=== PATIENT | male | born 1990 | race Caucasian/White ===

== ENCOUNTER → 2023-09-03 | Outpatient (CLI) | payer BC, MEDICAID, SELFPAY ==
[2023-09-03 10:08] LABS: Absolute Lymphocyte Count 3.04 X10^3/uL (0.83-4.51); Basophil# 0.07 X10^3/uL; Basophil% 0.7 % (0-1); Eosinophil# 0.24 X10^3/uL; Eosinophils% 2.4 % (0-5); Hematocrit 43.1 % (40-54); Hemoglobin 13.3 g/dL (13.0-16.5); Lymphocyte # 3.04 X10^3/ul (0.83-4.51); Lymphocyte % 30.7 % (19-41); Mean Corp Hgb Conc 30.9 g/dL (32-36); Mean Corpuscular Hgb 26.1 pg (27.0-32.0); Mean Corpuscular Volume 84.5 fL (80-94); Mean Platelet Vol. 10.6 fl (6.2-12.0); Monocyte# 0.54 X10^3/uL; Monocyte% 5.5 % (0-10); NRBC Flagged by Analyzer 0 % (0-5); Neutrophil # 5.97 X10^3/uL (2.7-7.7); Neutrophil % 60.3 % (47-70); Platelet Count 360 K/mm3 (150-450); RBC Distribution Width CV 14.9 % (11.6-14.6); RBC Distribution Width SD 45.2 fl (35.1-43.9); White Blood Count 9.9 K/mm3 (4.4-11.0)
[2023-09-03 10:48] LABS: ALB/GLOB Ratio 0.7 RATIO (0.9-2.4); AST(SGOT) 18 U/L (15-37); Alanine Aminotransfer ALT/SGPT 38 U/L (16-61); Albumin, Serum 3.2 g/dL (3.2-5.0); Alkaline Phosphatase 78 U/L (45-117); Anion Gap 4 (5-15); BUN 18 mg/dL (7-18); BUN/Creat Ratio 25.1 RATIO (10-20); Calcium,Total 8.8 mg/dL (8.5-10.1); Chloride 105 mmol/L (98-107); Cholesterol 165 mg/dL (200); Creatinine, Serum 0.72 mg/dL (0.70-1.30); EST Glomerular Filtration Rate 134 mL/min (>60); Est Glom Filt Rate - Afr Amer 162 mL/min (>60); Globulin 4.5 g/dL (2.2-4.2); Glucose 116 mg/dL (74-106); High Density Lipoprotein 32 mg/dL; Potassium 3.8 mmol/L (3.5-5.1); Protein, Total 7.7 g/dL (6.4-8.2); Sodium Level 138 mmol/L (136-145); Triglycerides 133 mg/dL; Very Low Density Lipoprotein 27 mg/dL (5-40)
== END | disposition home or self-care (01) ==
LOC: MFPLAB 09:02
PROVIDERS: PCP Family Medicine; Visit Provider Family Medicine
DX: E11.9 Type 2 diabetes mellitus without complications (principal)
CPT/HCPCS: 36415; 80053; 80061; 84443; 85025

== ENCOUNTER → 2023-11-05 | Outpatient (CLI) | payer BC, MEDICAID, SELFPAY ==
--- OUTSIDE RECORDS SUMMARY | 2023-11-05 09:48 | XMS RPT_ITS | CCD ---
Author Name Unknown Address [address] [place] [address] Organization [facility] Care Team Providers Care Vice President Network Name Role Phone Unavailable Unavailable Unavailable EDMUNDO SEQUEIRA Unavailable Unava ilable GRIMALDO, MICKEY REESE Unavailable Unavailable GRIMALDO, MICKEY REESE Unavailable Unavailable GRIMALDO, MICKEY REESE Unavailable Unavailable EDMUNDO SEQUEIRA Unavailable Unava ilEdmundo Morris Unavailable GRIMALDO, MICKEY REESE Admitting Unavailable GRIMALDO, MICKEY REESE Referring Unavailable EDMUNDO SEQUEIRA Primary Care EDMUNDO Liu MD Primary Care EDMUNDO Granados MD Attending Rima SEQUEIRA MD, EDMUNDO Admitting Rima BRYANT MD, LAWRENCE Consulting Unavailable EDMUNDO SEQUEIRA MD Consulting EDMUNDO Granados MD Admitting Rima SEQUEIRA MD, EDMUNDO Primary Care UnavailEDMUNDO Peralta MD Consulting EDMUNDO Granados MD Attending Rima ramos PHYSICIAN, NOT RECORDED Primary Care Unavailsaumya CASTELLANOS MD, AMARILIS Taveras Attending Unavailable Medications Current Medications Medication Drug Class(es) Dates Sig (Normalized) Sig (Original) aspirin 81 mg delayed release oral tablet (1 source) Platelet Aggregation Inhibitor, Nonsteroidal Anti-inflammatory Drug take 2 tablets by mouth once aspirin 81 MG EC tablet Take 162 mg by mouth nightly . Active atenolol 25 mg oral tablet (1 source) beta-Adrenergic Koby take 1 tablet by mouth once daily atenolol (TENORMIN) 25 MG tablet Take 25 mg by mouth daily. Active hydrOXYzine hydrochloride 25 mg oral tablet (1 source) Antihistamine take 2 tablets by mouth once hydrOXYzine (ATARAX) 25 MG tablet Take 50 mg by mouth nightly . Active hyoscyamine sulfate 0.125 mg sublingual tablet (1 source) take 0.125 tablet under the tongue every four hours hyoscyamine (LEVSIN/SL) 0.[address] 0.125 mg under the tongue every 4 (four) hours as needed for cramping. Active naproxen sodium 220 mg oral tablet (1 source) Nonsteroidal Anti-inflammatory Drug take 1 tablet by mouth twice daily as needed naproxen sodium (ALEVE) 220 MG tablet Take 220 mg by mouth 2 (two) times a day as needed. Active omeprazole 20 mg delayed release oral capsule (2 sources) Proton Pump Inhibitor take 1 capsule by mouth once daily omeprazole (PRILOSEC) 20 MG capsule Take 20 mg by mouth daily. Active Completed/Discontinued Medications Medication Drug Class(es) Dates Sig (Normalized) Sig (Original) Diphenhydramine 50 Mg/Ml Injection Solution (1 source) Histamine-1 Receptor Antagonist Start: 07-27-2017 End: 07-27-2017 take 25 mg intravenous route once, then take 25 mg intravenous route diphenhydrAMINE (BENADRYL) injection 25 mg 25 mg, Intravenous, Once, 07/27/17 at 1425, For 1 dose, For IV administration, give at a rate less than or equal to 25 mg/min Given 07/27/2017 15:09 EDT 25 mg 1 ml ketorolac tromethamine 30 mg/ml injection (1 source) Nonsteroidal Anti-inflammatory Drug, Cyclooxygenase Inhibitor Start: 07-27-2017 End: 07-27-2017 ketorolac (TORADOL) injection 30 mg 30 mg, Intravenous, Once, 07/27/17 at 1425, For 1 dose Given 07/27/2017 15:09 EDT 30 mg 2 ml metoclopramide 5 mg/ml injection (1 source) Dopamine-2 Receptor Antagonist Start: 07-27-2017 End: 07-27-2017 metoclopramide (REGLAN) injection 10 mg 10 mg, Intravenous, Once, 07/27/17 at 1425, For 1 dose Given 07/27/2017 15:09 EDT 10 mg 1000 ml sodium chloride 9 mg/ml injection (1 source) Start: 07-27-2017 End: 07-27-2017 sodium chloride 0.9% (NS) bolus 1,000 mL 1,000 mL, Intravenous, Once, 07/27/17 at 1425, For 1 dose New Bag 07/27/2017 15:09 EDT 1,000 mL Problems Active Problems Problem Classification Problem Date Documented Date Episodic/Chronic Diabetes mellitus without complication (3 sources) Type 2 diabetes mellitus without complications; Translations: [TYPE 2 DM WITHOUT COMPLICATIONS] Onset: 10-15-2022 Chronic Osteoarthritis (1 source) Unilateral primary osteoarthritis, left knee; Translations: [UNI PRIM OSTEOARTHRITIS LT KNEE] Onset: 10-16-2022 Chronic Past or Other Problems Problem Classification Problem Date Documented Da te Episodic/Chronic Headache; including migraine (3 sources) Headache; Translations: [Headache disorder] Onset: 07-27-2017 Episodic Malaise and fatigue (3 sources) Other fatigue; Translations: [Fatigue] Onset: 07-27-2017 Episodic Nonspecific chest pain (1 source) Chest pain; Translations: [Chest pain] Onset: 10-16-2016 10-16-2016 Episodic Other screening for suspected conditions (not mental disorders or infectious disease) (1 source) Other specified abnormal findings of blood chemistry; Translations: [OTH SPEC ABNORMAL FINDINGS BLD CHEM] Onset: 10-16-2022 Episodic Residual codes; unclassified (3 sources) Sleep deprivation; Translations: [Sleep deprivation] Onset: 07-27-2017 Episodic Results Test Name Value Interpretation Reference Range Facil ity Vital Signs Date Time Vital Sign Value Performing Clinician Facility 07-27-2017 17:10-0400 BP Diastolic 99 mm[Hg] Mickey Grimaldo [facility] Work Phone: 07-27-2017 17:10-0400 BP Systolic 126 mm[Hg] Mickey Grimaldo [facility] Work Phone: 07-27-2017 17:10-0400 Pulse (Heart Rate) 77 /min Mickey Grimaldo [facility] Work Phone: 07-27-2017 17:10-0400 Pulse Oximetry 100 % Mickey Grimaldo [facility] Work Phone: 07-27-2017 17:10-0400 Respiratory Rate 17 /min Mickey Grimaldo [facility] Work Phone: 07-27-2017 14:08-0400 BMI (Body Mass Index) 56.96 kg/m2 Mickey Grimaldo [facility] Work Phone: 07-27-2017 14:08-0400 Body Temperature 98.1 [degF] Mickey Grimaldo [facility] Work Phone: 07-27-2017 14:08-0400 Height 182.9 cm Mickey Grimaldo [facility] Work Phone: 07-27-2017 14:08-0400 Weight 190.51 kg Mickey Grimaldo [facility] Work Phone: Encounters Encounter Date Encounter Type Care Provider Facility Start: 05-29-2023 End: 05-29-2023 Emergency department patient visit NOT RECORDED PHYSICIAN Facility:B Start: 10-15-2022 End: 10-16-2022 ambulatory EDMUNDO SEQUEIRA MD Facility:[facility] Start: 06-27-2022 End: 06-28-2022 ambulatory EDMUNDO SEQUEIRA MD Facility:[facility] Start: 07-27-2017 End: 07-27-2017 Emergency department patient visit EDMUNDO [facility] Start: 07-27-2017 End: 07-27-2017 Emergency department patient visit Mickey Grimaldo Work Phone: [facility] Emergency Department Plan of Treatment Date Care Activity Detail Author Start: 06-26-2017 Influenza vaccination SEQUENTI AL INFLUENZA VACCINE (#1) [employer] Work Phone: Start: 1990 Tetanus vaccination TETANUS EVERY 10 YR [employer] Work Phone: Payers Date Payer Category Payer Unknown [id number] 2017 Medicaid [id number] 2016 Unknown [id number] 1990 Unknown [id number] 1990 Unknown [id number] 1990 Unknown [id number] 1990 Unknown [id number] 1959 Unknown [id number] Private Health Insurance [id number] Social History Date Type Detail Facility Start: 12-09-2017 Tobacco smoking stat [place] [facility] Unknown if ever smoked [facility] Work Phone: Sex Assigned At Not on file [facility] Work Phone: Start: 10-16-2016 Tobacco smoking stat [place] [facility] Former smoker [facility] Work Phone: Summary Purpose Family History No Family History Records FoundNo Family History Records FoundNo Family History Records FoundNo Family History Records FoundNo Family History Records Found Advance Directives No Advanced Directives Records FoundNo Advanced Directives Records FoundNo Advanced Directives Records FoundNo Advanced Directives Records FoundNo Advanced Directives Records Found Discharge Instructions * Mickey Grimaldo, - 07/27/2017 Thank you for choosing to be seen in our Emergency Department. It has been our pleasure to take care of you and hope you were completely satisfied. 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 You may be receiving a survey about your visit with us. It is scored on a 1-5 scale and anything other than a 5 is considered a failing score. We do our very best to provide service which receives scores of all 5's. It would be appreciated if you could send the survey back reflecting the staff's strong efforts to make sure you are safe and treated like we would treat our loved ones. Thank you again for choosing [facility]. Dr. Grimaldo and your [facility] ER Staff Fatigue: Care Instructions Your Care Instructions Fatigue is a feeling of tiredness, exhaustion, or lack of energy. You may feel fatigue because of too much or not enough activity. It can also come from stress, lack of sleep, boredom, and poor diet.Many medical problems, such as viral infections, can cause fatigue. Emotional problems, especially depression, are often the cause of fatigue. Fatigue is most often a symptom of another problem. Treatment for fatigue depends on the cause. Forexample, if you have fatigue because you have a certain health problem, treating this problem also treats your fatigue. If depression or anxiety is the cause, treatment may help. Follow-up care is a manning part of your treatment and safety. Be sure to make and go to all appointments, and call your doctor if you are having problems. It's also a good idea to know your test resultsand keep a list of the medicines you take. How can you care for yourself at home? Get regular exercise. But don't overdo it. Go back and forth between rest and exercise. Get plenty of rest. Eat a healthy diet. Do not skip meals, especially breakfast. Reduce your use of caffeine, tobacco, and alcohol. Caffeine is most often found in coffee, tea, cola drinks, and chocolate. Limit medicines that can cause fatigue. This includes tranquilizers and cold and allergy medicines. When should you call for help? Watch closely for changes in your health, and be sure to contact your doctor if: You have new symptoms such as fever or a rash. Your fatigue gets worse. You have been feeling down, depressed, or hopeless. Or you may have lost interest in things that you usually enjoy. You are not getting better as expected. Where can you learn more? Log into your personal health record on https://[employer] and enter W864 in the Education box to learn more about Fatigue: Care Instructions. Current as of: March 21, 2016 Content Version: 11.2 6020-5031 [employer]. Care instructions adapted under license by your healthcare professional. If you have questions about a medical condition or this instruction, always ask your healthcare professional. [employer] disclaims any warranty or liability for your use of this information. Headache: Care Instructions Your Care Instructions Headaches have many possible causes. Most headaches aren't a sign of a more serious problem, and they will get better on their own. Home treatment may help you feel better faster. The doctor has checked you carefully, but problems can develop later. If you notice any problems ornew symptoms, get medical treatment right away. Follow-up care is a manning part of your treatment and safety. Be sure to make and go to all appointments, and call your doctor if you are having problems. It's also a good idea to know your test resultsand keep a list of the medicines you take. How can you care for yourself at home? Do not drive if you have taken a prescription pain medicine. Rest in a quiet, dark room until your headache is gone. Close your eyes and try to relax or go to sleep. Don't watch TV or read. Put a cold, moist cloth or cold pack on the painful area for 10 to 20 minutes at a time. Put a thincloth between the cold pack and your skin. Use a warm, moist towel or a heating pad set on low to relax tight shoulder and neck muscles. Have someone gently massage your neck and shoulders. Take pain medicines exactly as directed. If the doctor gave you a prescription medicine for pain, take it as prescribed. If you are not taking a prescription pain medicine, ask your doctor if you can take an iohm-ewa-phpwmem medicine. Be careful not to take pain medicine more often than the instructions allow, because you may get worse or more frequent headaches when the medicine wears off. Do not ignore new symptoms that occur with a headache, such as a fever, weakness or numbness, vision changes, or confusion. These may be signs of a more serious problem. To prevent headaches Keep a headache diary so you can figure out what triggers your headaches. Avoiding triggers may help you prevent headaches. Record when each headache began, how long it lasted, and what the pain was like (throbbing, aching, stabbing, or dull). Write down any other symptoms you had with the headache, such as nausea, flashing lights or dark spots, or sensitivity to bright light or loud noise. Note if the headache occurred near your period. List anything that might have triggered the headache, such as certain foods (chocolate, cheese, wine) or odors, smoke, bright light, stress, or lack of sleep. Find healthy ways to deal with stress. Headaches are most common during or right after stressful times. Take time to relax before and after you do something that has caused a headache in the past. Try to keep your muscles relaxed by keeping good posture. Check your jaw, face, neck, and shoulder muscles for tension, and try relaxing them. When sitting at a desk, change positions often, and stretch for 30 seconds each hour. Get plenty of sleep and exercise. Eat regularly and well. Long periods without food can trigger a headache. Treat yourself to a massage. Some people find that regular massages are very helpful in relieving tension. Limit caffeine by not drinking too much coffee, tea, or soda. But don't quit caffeine suddenly, because that can also give you headaches. Reduce eyestrain from computers by blinking frequently and looking away from the computer screen every so often. Make sure you have proper eyewear and that your monitor is set up properly, about an arm's length away. Seek help if you have depression or anxiety. Your headaches may be linked to these conditions. Treatment can both prevent headaches and help with symptoms of anxiety or depression. When should you call for help? Call 911 anytime you think you may need emergency care. For example, call if: You have signs of a stroke. These may include: Sudden numbness, paralysis, or weakness in your face, arm, or leg, especially on only one side of your body. Sudden vision changes. Sudden trouble speaking. Sudden confusion or trouble understanding simple statements. Sudden problems with walking or balance. A sudden, severe headache that is different from past headaches. Call your doctor now or seek immediate medical care if: You have a new or worse headache. Your headache gets much worse. Where can you learn more? Log into your personal health record on https://[employer] and enter M271 in the Education box to learn more about Headache: Care Instructions. Current as of: August 08, 2016 Content Version: 11.2 2416-2672 [employer]. Care instructions adapted under license by your healthcare professional. If you have questions about a medical condition or this instruction, always ask your healthcare professional. [employer] disclaims any warranty or liability for your use of this information. Please review regarding your visit: Please note that your blood pressure during this ER visit was above 120/80 mmHg. The [place] [employer] (AHA) defines a normal blood pressure as below 120/80 mm Hg. This does not necessarily mean that you carry a diagnosis of a persistent elevation in your blood pressure called hypertension (unless you have already been diagnosed with hypertension), but does need close follow up. Please note that the Joint National Committee (JNC) guidelines recommend that this reading be repeated by your primary doctor or by home readings. Often times blood pressure can be elevated in the ERrelated to pain, etc. Your ER physician is trained in determining whether this blood pressure is causing symptoms during your visit today. At this time, your emergency physician has determined that you are safe for discharge. Please note that it may be inappropriate to treat this blood pressure in the ER if it is not causing symptoms. We strongly recommend follow up with your primary care doctor. A primary doctor will be referred toyou if you do not have one. If your blood pressure is persistently elevated, your doctor will then review options that can be made to manage this condition. If you already have a diagnosis of hypertension, please follow up with your primary care doctor for further management. The AHA does have a website that you can review at your convenience for more information: [email or web address] [email or web address] in this encounter History of Present Illness * Ayah Dawkins LSW - 07/27/2017 5:11 PM EDT DISCHARGE PLAN PROGRESS NOTE Date: 07/27/2017 Time: 6:08 PM Patient Name: Jeanie Martínez Date of : 1990 Sex: Male [employer] called for pt. Cab voucher provided to pt. in this encounter Assessments Diagnosis Headache disorder - Primary Headache Fatigue, unspecified type Sleep deprivation Problems related to lack of adequate sleep Additional Source Comments (unrecognized sect ion and content) No Status Records FoundNo Status Records FoundNo Status Records FoundNo Status Records FoundNo Status Records Found INFORMATION SOURCE (unrecogn ized section and content) DATE CREATED AUTHOR AUTHOR'S GAUTAM REINOSO 12/14/2018 [facility] DATE CREATED AUTHOR AUTHOR'S ORGANIZ ATION 01/28/2019 [facility] DATE CREATED AUTHOR AUTHOR'S ORGANIZ ATION 04/04/2023 [facility] DATE CREATED AUTHOR 'S GAUTAM ATION 05/31/2023 [facility] ([place]) Reason for Visit (unrecogniz ed section and content) FOR RECORDS PERTAINING TO PATIENTS WHO ARE OR HAVE BEEN ENROLLED IN A CHEMICAL DEPENDENCY/SUBSTANCEABUSE PROGRAM, SOME INFORMATION MAY BE OMITTED. This clinical summary was aggregated from multiple sources. Caution should be exercised in using it in the provision of clinical care. This summary normalizes information from multiple sources, and as a consequence, information in this document may materially change the coding, format and clinical context of patient data. In addition, data may be omitted in some cases. CLINICAL DECISIONS SHOULD BE BASED ON THE PRIMARY CLINICAL RECORDS. [facility]. provides no warranty or guarantee of the accuracy or completeness of information in this document.
[2023-11-05 11:01] LABS: Hemoglobin A1c 6.5 % (3.8-5.6)
== END | disposition home or self-care (01) ==
LOC: MTLAB 09:19
PROVIDERS: PCP Family Medicine; Referring Provider Family Medicine; Visit Provider Family Medicine
DX: N62 Hypertrophy of breast (principal); E11.9 Type 2 diabetes mellitus without complications; E55.9 Vitamin D deficiency, unspecified
CPT/HCPCS: 36415; 82306; 83036; 84403

== ENCOUNTER → 2023-11-12 | Outpatient (CLI) | payer BC, MEDICAID, SELFPAY ==
--- OUTSIDE RECORDS SUMMARY | 2023-11-12 10:53 | XMS RPT_ITS | CCD ---
Author Name Unknown Address [address] [place] [address] Organization [facility] Care Team Providers Care Harvest Worker Name Role Phone Unavailable Unavailable Unavailable EDMUNDO [...] 17:10-0400 BP Diastolic 99 mm[Hg] Mickey Grimaldo [facility] Work Phone: 07-27-2017 17:10-0400 BP Systolic 126 mm[Hg] Mickey Grimaldo [facility] Work Phone: 07-27-2017 17:10-0400 Pulse (Heart Rate) 77 /min Mickey Grimaldo [facility] Work Phone: 07-27-2017 17:10-0400 Pulse Oximetry 100 % Mickey Grimaldo [facility] Work Phone: 07-27-2017 17:10-0400 Respiratory Rate 17 /min Mickey Grimaldo [facility] Work Phone: 07-27-2017 14:08-0400 BMI (Body Mass Index) 56.96 kg/m2 Mickey Grimaldo [facility] Work Phone: 07-27-2017 14:08-0400 Body Temperature 98.1 [degF] Mickey Grimaldo [facility] Work Phone: 07-27-2017 14:08-0400 Height 182.9 cm Mickey Grimaldo [facility] Work Phone: 07-27-2017 14:08-0400 Weight 190.51 kg Mickey Grimaldo [facility] Work Phone: Encounters Encounter Date Encounter Type Care Provider Facility Start: 05-29-2023 End: 05-29-2023 Emergency department patient visit NOT RECORDED PHYSICIAN Facility:B Start: 10-15-2022 End: 10-16-2022 ambulatory EDMUNDO SEQUEIRA MD Facility:[facility] Start: 06-27-2022 End: 06-28-2022 ambulatory EDMUNDO SEQUEIRA MD Facility:[facility] Start: 07-27-2017 End: 07-27-2017 Emergency department patient visit EDMUNDO YU [facility] Start: 07-27-2017 End: 07-27-2017 Emergency department patient visit Mickey Grimaldo Work Phone: [facility] Plan of Treatment Date Care Activity Detail Author Start: 06-26-2017 Influenza vaccination SEQUENTI AL INFLUENZA VACCINE (#1) [facility] Work Phone: Start: 1990 Tetanus vaccination TETANUS EVERY 10 YR [facility] Work Phone: Payers Date Payer Category Payer Unknown [id number] 2017 Medicaid [id number] 2016 Unknown [id number] 1990 Unknown [id number] 1990 Unknown [id number] 1990 Unknown [id number] [id number] [id number] 1990 Unknown [id number] 1959 Unknown [id number] Private Health Insurance [id number] Social History Date Type Detail Facility Start: 12-09-2017 Tobacco smoking stat [facility] Unknown if ever smoked [facility] Work Phone: Sex Assigned At Not on file [facility] Work Phone: Start: 10-16-2016 Tobacco smoking stat [facility] Former smoker [facility] Work Phone: Summary Purpose Family History No [...] were completely satisfied. 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 Thank you again for choosing [facility]. Dr. Grimaldo and your [facility] ER Staff Fatigue: Care Instructions Your Care [...] Log into your personal health record on [email or web address] and enter W864 in the Education box to learn more about Fatigue: Care Instructions. Current as of: March 21, 2016 Content Version: 11.2 1319-9213 [employer] Care instructions adapted under license by your healthcare professional. If you have questions about a medical condition or this instruction, always ask your healthcare professional. [employer] disclaims any warranty or liability for your [...] your doctor if you can take an buln-nfy-kaopfsw medicine. Be careful not to take pain [...] Log into your personal health record on [email or web address] and enter M271 in the Education box to learn more about Headache: Care Instructions. Current as of: August 08, 2016 Content Version: 11.2 [id number] [employer]. Care instructions adapted under license by your healthcare professional. If you have questions about a medical condition or this instruction, always ask your healthcare professional. [employer] disclaims any warranty or liability for your use of this information. Please review regarding your visit: Please note that your blood pressure during this ER visit was above 120/80 mmHg. The [place] [employer] (AHA) defines a normal blood [...] review at your convenience for more information: [email or web address] in this encounter History of Present [...] DATE CREATED AUTHOR AUTHOR'S GAUTAM REINOSO 12/14/2018 [facility] DATE CREATED AUTHOR AUTHOR'S ORGANIZ ATION 01/28/2019 [facility] DATE CREATED AUTHOR AUTHOR'S ORGANIZ ATION 04/04/2023 [facility] DATE CREATED AUTHOR 'S GAUTAM ATION 05/31/2023 [facility] ([place]) Reason for Visit (unrecogniz [...] BE BASED ON THE PRIMARY CLINICAL RECORDS. [facility] [employer] [facility]. provides no warranty or guarantee of the accuracy or completeness of information in this document.
[2023-11-12 12:55] LABS: PSA,Total - Annual Screen 0.51 ng/mL (0.00-4.00)
== END | disposition home or self-care (01) ==
LOC: MFPLAB 10:31
PROVIDERS: PCP Family Medicine; Visit Provider Family Medicine
DX: N62 Hypertrophy of breast (principal)
CPT/HCPCS: 36415; 84153; G0103

== ENCOUNTER → 2024-01-11 | Outpatient (CLI) | payer BC, MEDICAID, SELFPAY ==
--- NOTE | 2024-01-11 14:55 | VDLE_ITS ---
Reason For Study: LLE Pain Procedure LEFT This is a venous duplex using B-mode, color GSV is normal. flow and spectral Doppler. CFV is compressible, spontaneous, phasic, Exam performed in department. competent, and demonstrates normal The study was technically difficult. augmentation. The study was technically limited. FV is compressible, spontaneous, phasic, A preliminary report was called and/or faxed competent and demonstrates normal to Delroy SOLANO. augmentation. POP V is compressible, spontaneous, phasic, competent and demonstrates normal augmentation. T/P Trunk is compressible. PTV is compressible. LT PerV is compressible. VL/Venous Duplex US, Unilateral Interpretation Summary Deep veins of the left lower extremity are patent and compressible segmentally. There is no evidence of left lower extremity deep vein thrombosis. The left great saphenous vein esperanza ears patent and compressible segmentally. Ordering Physician: Delroy Doty Referring Physician: Monroe Whitaker Performed By: Lesli Bonilla RDCS, RVT
== END | disposition home or self-care (01) ==
PROVIDERS: PCP Family Medicine; Referring Provider Physician Assistant; Visit Provider Physician Assistant
DX: M79.662 Pain in left lower leg (principal)
CPT/HCPCS: 93971

== ENCOUNTER → 2024-02-02 | Outpatient (CLI) | payer BC, SELFPAY ==
--- NOTE | 2024-02-02 09:14 | RAD_ITS ---
STUDY: X-RAY - LUMBAR SPINE REASON FOR EXAM: Male, 33 years old. SCIATICA TECHNIQUE: 5 view(s) of the lumbar spine were obtained. COMPARISON: None FINDINGS: Normal lumbar lordosis. There is no substantial scoliosis. There is a normal alignment of the vertebrae. Normal vertebral bodies and endplates. Mild disc space narrowing is present at L4-L5. The remaining disc spaces are preserved. No fracture or compression deformity is present. No suspicious abnormalities are seen. The soft tissue structures are unremarkable. RAD/L/S Spine Min 4 Views IMPRESSION: Mild degenerative disc disease at L4-L5 Electronically Signed: Harish Flores MD at 11:22 EDT ,
== END | disposition home or self-care (01) ==
PROVIDERS: PCP Family Medicine; Referring Provider Family Medicine; Visit Provider Family Medicine
DX: M54.32 Sciatica, left side (principal)
CPT/HCPCS: 36415; 72110; 84403

== ENCOUNTER → 2024-05-04 | Outpatient (CLI) | payer BC, SELFPAY | END | disposition home or self-care (01) | LOC: MFPLAB 09:56 | PROVIDERS: PCP Family Medicine; Visit Provider Family Medicine | DX: E29.1 Testicular hypofunction (principal) | CPT/HCPCS: 36415; 84403 ==

== ENCOUNTER → 2025-06-01 | Outpatient (CLI) | payer BC, SELFPAY ==
[2025-06-01 10:26] LABS: Hematocrit 44.6 % (40-54); Hemoglobin 14.2 g/dL (13.0-16.5); Immature Granulocytes Count 0.050 X10^3/uL (0.0-0.0); Mean Corp Hgb Conc 31.8 g/dL (32-36); Mean Corpuscular Volume 79.5 fL (80-94); Mean Platelet Vol. 10.1 fl (6.2-12.0); NRBC Flagged by Analyzer 0 % (0-5); Platelet Count 371 K/mm3 (150-450); RBC Distribution Width CV 13.4 % (11.6-14.6); RBC Distribution Width SD 38.3 fl (35.1-43.9); Red Blood Count 5.61 M/mm3 (4.6-6.2); White Blood Count 9.5 K/mm3 (4.4-11.0)
[2025-06-01 12:31] LABS: AST(SGOT) 21 U/L (<=37); Alanine Aminotransfer ALT/SGPT 36 U/L (<=46); Albumin, Serum 4.0 g/dL (3.5-5.0); Alkaline Phosphatase 104 U/L (40-129); Anion Gap 14 (5-15); BUN 12 mg/dL (4-19); BUN/Creat Ratio 17.6 RATIO (10-20); Calcium,Total 9.1 mg/dL (7.6-11.0); Carbon Dioxide 25.1 mmol/L (21.0-32.0); Chloride 98 mmol/L (98-108); Cholesterol 175 mg/dL (<=200); Globulin 3.5 g/dL (2.2-4.2); Glucose 179 mg/dL (70-99); Low Density Lipoprotein Calc. 107 mg/dL; Potassium 4.1 mmol/L (3.3-5.1); Triglycerides 153 mg/dL; Very Low Density Lipoprotein 31 mg/dL (5-40); Vitamin D,25 Hydroxy 17.0 ng/mL (30-100); cholesterol:hdl ratio screen 4.72
== END | disposition home or self-care (01) ==
LOC: MFPLAB 09:17
PROVIDERS: PCP Family Medicine; Referring Provider Family Medicine; Visit Provider Family Medicine
DX: E11.9 Type 2 diabetes mellitus without complications (principal); R79.89 Other specified abnormal findings of blood chemistry; E55.9 Vitamin D deficiency, unspecified
CPT/HCPCS: 36415; 80053; 80061; 82306; 84403; 85025